=== PATIENT | female | born 1945 | race African-American/Black ===

== ENCOUNTER 2017-10-11 16:41 | Emergency (ER) | payer MEDICARE, OTHER ==
[~2017-10-11] VITALS: Ht 165.1 cm; Wt 56.8 kg
[~2017-10-11 16:41] MED LIST: ADV250 IH; ALBU8HFA IH; IPRA4AER IH; MONT10TA21 PO; OMEP20 PO; PRED20 PO
[2017-10-11] MEDS ORDERED: METHOCARBAMOL 500 MG TABLET PO ONE (19:15)
[2017-10-11] MEDS ORDERED: KETOROLAC TROMETHAMINE 10 MG TABLET PO ONE (19:15)
[2017-10-11] MEDS ORDERED: LIDOCAINE HCL 5% TRANSDERMAL PATCH TD ONE (19:15)
[2017-10-11 21:24] VITALS: BP 146/79
== END 2017-10-11 21:28 | disposition home or self-care (01) ==
LOC: EMS 19:07
DX: M65.222 Calcific tendinitis, left upper arm (principal); M25.512 Pain in left shoulder; J45.909 Unspecified asthma, uncomplicated; J44.9 Chronic obstructive pulmonary disease, unspecified; F17.210 Nicotine dependence, cigarettes, uncomplicated
CPT/HCPCS: 29105; 99284

== ENCOUNTER 2019-06-19 09:42 | Emergency (ER) | payer MEDICARE, OTHER ==
[~2019-06-19] VITALS: Ht 165.1 cm; Wt 58.6 kg
[2019-06-19] MEDS ORDERED: DEXAMETHASONE 4 MG TABLET PO ONE (10:45)
[2019-06-19 11:30] VITALS: BP 124/74
== END 2019-06-19 12:02 | disposition home or self-care (01) ==
LOC: EMS 09:42
DX: J02.9 Acute pharyngitis, unspecified (principal); J45.909 Unspecified asthma, uncomplicated; I10 Essential (primary) hypertension; F17.210 Nicotine dependence, cigarettes, uncomplicated
CPT/HCPCS: 87430; 99283; J8540

== ENCOUNTER 2024-01-20 00:26 | Emergency (ER) | payer MEDICARE, OTHER ==
[~2024-01-20] VITALS: Ht 165.1 cm; Wt 54.5 kg
[~2024-01-20 00:26] MED LIST changes: -ADV250 IH; +ALBU18HF12 IH; -ALBU8HFA IH; +FLUT1DIS6 IH; -MONT10TA21 PO; -OMEP20 PO; +PRED-554 PO; -PRED20 PO
[2024-01-20 01:02] VITALS: BP 154/78; PULSE 70; RESP 16; TEMP 98.6; O2SAT 98
[2024-01-20 01:28] LABS: BASOPHILS % (AUTO) 1.5 % (0.0-2.0); EOSINOPHILS % (AUTO) 1.4 % (1.0-6.0); HEMATOCRIT 34.4 % (36-46); HEMOGLOBIN 10.9 g/dL (12.0-16.0); LYMPHOCYTES % (AUTO) 19.5 % (22.0-44.0); MEAN CORPUSCULAR HEMOGLOBIN 27.2 pg (26.0-34.0); MEAN CORPUSCULAR HGB CONC 31.5 G/dL (31.0-37.0); MEAN CORPUSCULAR VOLUME 86 fL (80-100); MONOCYTES # (AUTO) 0.6 K/uL (0.1-1.0); MONOCYTES % (AUTO) 12.6 % (2.0-9.0); NEUTROPHILS # (AUTO) 3.3 K/uL (1.8-7.7); PLATELET COUNT (AUTO) 252 K/uL (150-450); RED BLOOD CELL COUNT(AUTO) 3.99 MIL/uL (4.00-5.20); RED CELL DISTRIBUTION WIDTH 14.8 % (11.5-14.5); WHITE BLOOD COUNT (AUTO) 5.1 K/uL (4.5-11.0)
[2024-01-20 01:34] LABS: ANION GAP 6 mmol/L (8-16); CALCIUM, TOTAL 9.2 mg/dL (8.8-10.5); CARBON DIOXIDE 29 mmol/L (22-29); CHLORIDE 104 mmol/L (98-107); CREATININE 0.88 mg/dL (0.60-1.30); GLOMERULAR FILTR. RATE CALC > 60 mL/min (>60); GLUCOSE,RANDOM 89 mg/dL (70-110); POTASSIUM 4.1 mmol/L (3.5-5.1); SODIUM SERUM 139 mmol/L (136-145); UREA NITROGEN, BLOOD 17 mg/dL (7-18)
[2024-01-20 01:49] LABS: APPEARANCE,URINE CLEAR (CLEAR); BILIRUBIN,URINE NEGATIVE (NEGATIVE); COLOR,URINE LIGHT YELLOW (YELLOW); GLUCOSE, URINE (UA) NEGATIVE (NEGATIVE); KETONES,URINE NEGATIVE (NEGATIVE); LEUKOCYTE ESTERASE ,URINE NEGATIVE (NEGATIVE); NITRATE,URINE NEGATIVE (NEGATIVE); OCCULT BLOOD,URINE NEGATIVE (NEGATIVE); PROTEIN,URINE NEGATIVE (NEGATIVE); SPECIFIC GRAVITIY, URINE 1.021 (1.003-1.030); UROBILINOGEN,URINE <=1.0 mg/dL (<=1.0)
== END 2024-01-20 02:50 | disposition home or self-care (01) ==
LOC: EMS 00:28
DX: R39.198 Other difficulties with micturition (principal); J44.9 Chronic obstructive pulmonary disease, unspecified; I10 Essential (primary) hypertension; F17.210 Nicotine dependence, cigarettes, uncomplicated; Z98.890 Other specified postprocedural states
CPT/HCPCS: 80048; 81003; 83880; 85025; 99283